=== PATIENT | female | born 1970 | race Caucasian/White ===

== ENCOUNTER → 2019-12-20 | Emergency (ER) | payer OTHER, MEDICAID ==
[~2019-12-20] VITALS: Ht 167.6 cm; Wt 81.6 kg
[~2019-12-20] MED LIST: BACITRACIN TOP OINT 1 UD PKG TOP ONE; LIDOCAINE 1% HCL (LOCAL ANESTH.) INJ 20ML MDV ID ONE
[2019-12-20 22:05] VITALS: BP 118/59
[2019-12-20 22:32] LABS: Basophils # (auto) 0 10 ^3/uL (0-0.2); Basophils % (auto) 0.7 % (0.0-2.0); Eosinophils # (auto) 0.2 10 ^3/uL (0-0.8); Eosinophils % (auto) 3.6 % (0.0-7.0); Hematocrit 40.9 % (36.0-46.0); Lymphocytes # (auto) 2.4 10 ^3/uL (0.4-5.4); Mean Corpuscular Hemoglobin 30.2 pg (28.0-32.0); Mean Corpuscular Hgb Conc. 34.3 g/dL (32.0-36.0); Mean Corpuscular Volume 88.1 fL (80.0-100.0); Monocytes # (auto) 0.4 10 ^3/uL (0-1.3); Neutrophils # (auto) 2.3 10 ^3/uL (1.6-8.6); Neutrophils % (auto) 43.7 % (37.0-80.0); Platelet Count (auto) 358 10^3/uL (140-450); Red Blood Cells 4.65 10^6/uL (4.0-5.20); Red Cell Distribution Width 14.2 % (11.8-14.3); White Blood Cell 5.3 10^3/uL (4.4-10.8)
[2019-12-20 22:50] LABS: INR 1.12 (0.9-1.15); Partial Thromboplastin Time 25.6 sec (23.64-32.05)
[2019-12-20 22:52] LABS: Albumin 3.5 g/dL (3.4-5.0); Anion Gap 3 (5-15); BUN/Creatinine Ratio 33.3; Blood Urea Nitrogen 22 mg/dL (7-18); Calcium 8.8 mg/dL (8.5-10.1); Carbon Dioxide 26 mmol/L (21-32); Chloride 108 mmol/L (98-107); GFR African American 123 mL/min; GFR Non-African American 102 mL/min; Glucose 99 mg/dL (74-106); Magnesium 2.1 mg/dL (1.6-2.6); Potassium 4.5 mmol/L (3.5-5.1); Sodium 137 mmol/L (136-145)
[2019-12-20 22:57] LABS: Alanine Aminotransferase 39 U/L (13-56); Alkaline Phosphatase 56 U/L (45-117); Aspartate Aminotransferase 23 U/L (15-37); Bilirubin, Total 0.3 mg/dL (0.2-1.0); Total Protein 7.2 g/dL (6.4-8.2)
== END | disposition home or self-care (01) ==
LOC: ER 21:32 → EDBD 21:32
DX: S01.01XA Laceration without foreign body of scalp, initial encounter (principal); R55 Syncope and collapse; K21.9 Gastro-esophageal reflux disease without esophagitis; Z88.1 Allergy status to other antibiotic agents; Z88.8 Allergy status to other drugs, medicaments and biological substances; Z98.84 Bariatric surgery status; X58.XXXA Exposure to other specified factors, initial encounter; Y93.89 Activity, other specified; Y99.8 Other external cause status; Y92.89 Other specified places as the place of occurrence of the external cause
CPT/HCPCS: 12001; 36415; 70450; 71045; 80053; 83735; 83880; 84484; 85025; 85379; 85610; 85730; 93005